=== PATIENT | male | born 1955 | race Caucasian/White ===

== ENCOUNTER 2019-10-24 14:10 | Observation (INO) | payer BC ==
[~2019-10-24] VITALS: Ht 172.7 cm; Wt 91.3 kg
[2019-10-24] MEDS ORDERED: IPRATRPIUM/ALBUTEROL 0.5/2.5MG 3 ML NEBU. ONE (14:17)
[2019-10-24] MEDS ORDERED: ALBUTEROL SULFATE 2.5 MG/3 ML NEBU. ONE (14:36)
[2019-10-24 14:43] LABS: BASO # 0.1 x10^3/uL (0.0-0.2); BASO % 1 % (0-3); EOS # 0.1 x10^3/uL (0.0-0.7); EOS % 1 % (0-3); HEMATOCRIT 55.5 % (39.0-53.0); HEMOGLOBIN 18.7 g/dL (13.0-17.5); LYMPH # 0.8 x10^3/uL (1.0-4.8); LYMPH % 8 % (24-48); MEAN CORPUSCULAR HEMOGLOBIN 32 pg (25-35); MEAN CORPUSCULAR HGB CONC 34 g/dL (31-37); MEAN CORPUSCULAR VOLUME 96 fL (79-100); MONO # 0.9 x10^3/uL (0.0-1.1); MONO % 9 % (0-9); NEUT # 8.3 x10^3uL (1.8-7.7); NEUT % 81 % (31-73); PLATELET COUNT 160 x10^3/uL (140-400); RED BLOOD COUNT 5.82 x10^6/uL (4.30-5.70); RED CELL DISTRIBUTION WIDTH 14.8 % (11.5-14.5); WHITE BLOOD COUNT 10.2 x10^3/uL (4.0-11.0)
[2019-10-24] MEDS ORDERED: ALBUTEROL SULFATE 2.5 MG/3 ML NEBU. CONT NEB ONE (14:45)
[2019-10-24] MEDS ORDERED: IPRATRPIUM/ALBUTEROL 0.5/2.5MG 3 ML NEBU. NEB ONE (14:45)
[2019-10-24] MEDS ORDERED: methylPREDNISolone SOD SUCC PF 125 MG/2 ML VIAL. IV ONE (14:45)
[2019-10-24 14:46] LABS: CALCIUM 8.9 mg/dL (8.5-10.1); CREATININE 1.2 mg/dL (0.7-1.3); GFR 61.1
--- NOTE | 2019-10-24 14:47 | RAD ---
CHEST PA LATERAL History: Dyspnea. Comparison: November 11, 2016 FINDINGS: Cardiomediastinal silhouette is stable. The aorta demonstrates a tortuous morphology similar to previous exam. No evidence of pneumothorax. No evidence of pleural effusion. No consolidating infiltrate. Bones appear intact. Degenerative changes at the spine. IMPRESSION: No evidence of consolidating infiltrate. Electronically signed by: Nikko Castaneda MD (10/24/2019 2:44 PM) [facility]
--- NOTE | 2019-10-24 14:55 | PHYS DOC ---
Past History Past Medical History: Anxiety, Arthritis, Hypertension Past Surgical History: No Surgical History Alcohol Use: Rarely Drug Use: None Adult General Chief Complaint Chief Complaint: FEVER HPI HPI Patient is a 64-year-old male who arrives by POV with report of shortness of breath and fever. [facility] and they had tested him for influenza. Influenza was negative but they and instructed patient to come to the emergency room for further evaluation and management because heart rate was rapid and O2 sat was low. Patient does indicat e that he has been short of breath for a few days and just hasn't been feeling well for the last day. Patient has been a smoker for 50 years. He denies any history of COPD however. Patient states that he has had no chest pain but he does indicate that he is been short of breath and it has been worsened with exertion.[] Review of Systems Review of Systems Constitutional: Denies fever or chills [] Respiratory: Complains of cough and shortness of breath [] Cardiovascular: No additional information not addressed in HPI [] GI: Denies abdominal pain, nausea, vomiting or diarrhea [] Integument: Denies rash or skin lesions [] Neurologic: Denies headache, focal weakness or sensory changes [] All other systems were reviewed and found to be within normal limits, except as documented in this note. Current Medications Current Medications Current Medications Medications (Trade) Dose Ordered Sig/Katherine Start Time Stop Time Status Last Admin Dose Admin Albuterol Sulfate (Ventolin) 2.5 mg STK-MED ONCE 10/24/19 14:36 10/24/19 14:36 DC Albuterol/ Ipratropium (Duoneb) 3 ml 1X ONCE 10/24/19 14:45 10/24/19 14:46 DC Methylprednisolone Sodium Succinate (SOLU-Medrol 125MG VIAL) 125 mg 1X ONCE 10/24/19 14:45 10/24/19 14:46 DC 10/24/19 14:45 125 MG Allergies Allergies Allergies Coded Allergies Type Severity Reaction Last Updated Verified No Known Drug Allergies 10/24/19 No Physical Exam Physical Exam Constitutional: Well developed, well nourished, in mild respiratory distress, non-toxic appearance. [] HENT: Normocephalic, atraumatic, bilateral external ears normal, oropharynx moist, no oral exudates, nose normal. [] Eyes: PERRLA, EOMI, conjunctiva normal, no discharge. [] Neck: Normal range of motion, no tenderness, supple. [] Cardiovascular: Mildly tachycardic rate with regular rhythm[] Lungs & Thorax: Diminished breath sounds are noted bilaterally with expiratory wheezes along with fine basilar rhonchi to auscultation [] Abdomen: Bowel sounds normal, soft, no tenderness. [] Skin: Warm, dry, no erythema, no rash. [] Extremities: No tenderness, no cyanosis, no clubbing, ROM intact. [] Neurologic: Alert and oriented X 3, no focal deficits noted. [] Current Patient Data Vital Signs Vital Signs Date Time Temp Pulse Resp B/P (MAP) Pulse Ox O2 Delivery O2 Flow Rate FiO2 10/24/19 14:48 97 heart neb 10.0 10/24/19 14:19 98.8 110 18 Lab Results Laboratory Tests Test 10/24/19 14:24 White Blood Count 10.2 x10^3/uL (4.0-11.0) Red Blood Count 5.82 x10^6/uL (4.30-5.70) H Hemoglobin 18.7 g/dL (13.0-17.5) H Hematocrit 55.5 % (39.0-53.0) H Mean Corpuscular Volume 96 fL (79-100) Mean Corpuscular Hemoglobin 32 pg (25-35) Mean Corpuscular Hemoglobin Concent 34 g/dL (31-37) Red Cell Distribution Width 14.8 % (11.5-14.5) H Platelet Count 160 x10^3/uL (140-400) Neutrophils (%) (Auto) 81 % (31-73) H Lymphocytes (%) (Auto) 8 % (24-48) L Monocytes (%) (Auto) 9 % (0-9) Eosinophils (%) (Auto) 1 % (0-3) Basophils (%) (Auto) 1 % (0-3) Neutrophils # (Auto) 8.3 x10^3uL (1.8-7.7) H Lymphocytes # (Auto) 0.8 x10^3/uL (1.0-4.8) L Monocytes # (Auto) 0.9 x10^3/uL (0.0-1.1) Eosinophils # (Auto) 0.1 x10^3/uL (0.0-0.7) Basophils # (Auto) 0.1 x10^3/uL (0.0-0.2) Sodium Level 138 mmol/L (136-145) Potassium Level 4.0 mmol/L (3.5-5.1) Chloride Level 99 mmol/L (98-107) Carbon Dioxide Level 28 mmol/L (21-32) Anion Gap 11 (6-14) Blood Urea Nitrogen 13 mg/dL (8-26) Creatinine 1.2 mg/dL (0.7-1.3) Estimated GFR (Cockcroft-Gault) 61.1 BUN/Creatinine Ratio 11 (6-20) Glucose Level 166 mg/dL (70-99) H Calcium Level 8.9 mg/dL (8.5-10.1) Total Bilirubin Pending Aspartate Amino Transferase (AST) Pending Alanine Aminotransferase (ALT) Pending Alkaline Phosphatase Pending BS-Evb-N-Type Natriuretic Peptide Pending Total Protein Pending Albumin Pending Albumin/Globulin Ratio Pending EKG EKG [] Radiology/Procedures Radiology/Procedures [] Impressions: PROCEDURE: CHEST PA & LATERAL CHEST PA LATERAL History: Dyspnea. Comparison: November 11, 2016 FINDINGS: Cardiomediastinal silhouette is stable. The aorta demonstrates a tortuous morphology similar to previous exam. No evidence of pneumothorax. No evidence of pleural effusion. No consolidating infiltrate. Bones appear intact. Degenerative changes at the spine. IMPRESSION: No evidence of consolidating infiltrate. Electronically signed by: Nikko Castaneda MD (10/24/2019 2:44 PM) [facility] Course & Med Decision Making Course & Med Decision Making Pertinent Labs and Imaging studies reviewed. (See chart for details) [] Dragon Disclaimer Dragon Disclaimer This electronic medical record was generated, in whole or in part, using a voice recognition dictation system. Departure Departure: Impression: Primary Impression: COPD exacerbation Additional Impressions: Acute bronchitis Fever Disposition: 09 ADMITTED INPATIENT Admitting Physician: Charla Bryant Condition: IMPROVED Referrals: SAMUEL BERG DO (PCP) Problem Qualifiers Additional Impressions: Acute bronchitis Bronchitis organism: unspecified organism Qualified Codes: J20.9 - Acute bronchitis, unspecified Fever Fever type: unspecified Qualified Codes: R50.9 - Fever, unspecified CURT ANGULO Jr. DO Oct 24, 2019 14:55
[2019-10-24 14:58] LABS: ALBUMIN 3.6 g/dL (3.4-5.0); ALBUMIN/GLOBULIN RATIO 1.1 (1.0-1.7); TOTAL BILIRUBIN 0.5 mg/dL (0.2-1.0); TOTAL PROTEIN 6.9 g/dL (6.4-8.2)
[2019-10-24] MEDS ORDERED: IOHEXOL 350 MG/ML 100 ML VIAL. IV ONE (16:30)
--- NOTE | 2019-10-24 17:21 | RAD ---
PQRS Compliance Statement: One or more of the following individualized dose reduction techniques were utilized for this examination: 1. Automated exposure control 2. Adjustment of the mA and/or kV according to patient size 3. Use of iterative reconstruction technique CT ANGIOGRAPHY CHEST 10/24/2019 4:18 PM INDICATION: Pulmonary embolism COMPARISON: Chest radiograph 10/24/2019 TECHNIQUE: Axial CT images of the chest were obtained after the intravenous administration of nonionic contrast. Coronal and sagittal reformats are provided. Maximum intensity projection images of the thoracic vasculature are provided. FINDINGS: The thyroid gland is normal in appearance. By paratracheal lymph node measures 7.5 mm. Subcarinal lymph node measures 13 mm by short axis. Precarinal lymph node measures 10 mm by short axis (series 5, image 48). Right hilar lymph node measures 12 mm (series 5, image 63). Infrahilar lymph node measures 9 mm (series 5, image 67) additional enlarged right hilar lymphadenopathy noted. The heart size is within normal limits. No significant pericardial effusion. Thoracic aorta is normal in course and caliber. There is adequate opacification of the pulmonary arterial system. There there are no filling defects within the pulmonary arterial system to suggest acute or chronic pulmonary embolus. Mild centrilobular pulmonary emphysema. Bronchial wall thickening is identified, involving the right lower lobe suggestive of bronchitis. There is right basilar subsegmental atelectasis. No pleural effusions, pulmonary vascular congestion or pneumothorax. Visualized portions of the upper abdomen are within normal limits. No suspicious osseous lesions are visualized. IMPRESSION: There is no evidence for acute or chronic pulmonary embolism. Right hilar lymphadenopathy may be reactive. 3 month follow-up chest CT may be of benefit to ensure resolution. Extensive bronchial wall thickening is noted in the right lower lobe with more diffuse mild bronchial wall thickening suggestive of bronchitis. Electronically signed by: Shannon Sancehz MD (10/24/2019 5:18 PM) [facility]
[2019-10-24] MEDS ORDERED: MORPHINE SULFATE 2 MG/ML DISP.SYRIN. IV PRN (18:15)
[2019-10-24] MEDS ORDERED: ONDANSETRON PF 4 MG/2 ML VIAL. IV PRN (18:15)
[2019-10-24 19:19] VITALS: BP 118/94
[2019-10-24] MEDS ORDERED: IPRATRPIUM/ALBUTEROL 0.5/2.5MG 3 ML NEBU. NEB SCH (20:00)
[2019-10-24] MEDS ORDERED: CYCL-331 PO (20:33)
[2019-10-24] MEDS ORDERED: LIDO700A21 TP (20:33)
[2019-10-24] MEDS ORDERED: CYCLOBENZAPRINE 10 MG TABLET. PO PRN (20:45)
[2019-10-24] MEDS: LIDOCAINE (700MG/PATCH) PATCH. TP SCH (21:15)
[2019-10-24] MEDS: IPRATRPIUM/ALBUTEROL 0.5/2.5MG 3 ML NEBU. NEB SCH ×2 (21:41→23:51)
[2019-10-24 22:42] VITALS: BP 119/75
--- NOTE | 2019-10-24 22:50 | EKG ---
[address] [address] Test Date: 2019-10-24 Test Time: 15:07:34 Pat Name: JUNE YORK Department: Room: Gender: M Appliquer: : [id number] Requested By: CURT ANGULO Order Number: [id number] Reading MD: Measurements Intervals [place] Rate: 99 P: 60 OK: 158 QRS: 39 QRSD: 78 T: -67 QT: 302 QTc: 392 Interpretive Statements SINUS RHYTHM T ABNORMALITY IN INFEROLATERAL LEADS ABNORMAL ECG RI6.01 No previous ECG available for comparison
[2019-10-25] MEDS ORDERED: NAPR500T8 PO (01:02)
[2019-10-25] MEDS ORDERED: TEST200V3 IM (01:02)
[2019-10-25] MEDS ORDERED: METO-247 PO (01:02)
[2019-10-25] MEDS ORDERED: DEXT30TA2 PO (01:02)
[2019-10-25] MEDS ORDERED: NIAC-9 PO (01:02)
[2019-10-25] MEDS ORDERED: CELE200C PO (01:02)
[2019-10-25] MEDS ORDERED: ESOM40CA PO (01:02)
[2019-10-25] MEDS ORDERED: DULO60CA6 PO (01:02)
[2019-10-25] MEDS: IPRATRPIUM/ALBUTEROL 0.5/2.5MG 3 ML NEBU. NEB SCH ×3 (05:06→10:15)
[2019-10-25 05:10] VITALS: BP 144/81
[2019-10-25 07:24] LABS: BASO # 0.1 x10^3/uL (0.0-0.2); BASO % 1 % (0-3); EOS % 0 % (0-3); HEMATOCRIT 53.3 % (39.0-53.0); HEMOGLOBIN 17.8 g/dL (13.0-17.5); LYMPH # 0.5 x10^3/uL (1.0-4.8); LYMPH % 4 % (24-48); MEAN CORPUSCULAR HEMOGLOBIN 32 pg (25-35); MEAN CORPUSCULAR HGB CONC 34 g/dL (31-37); MEAN CORPUSCULAR VOLUME 97 fL (79-100); MONO # 0.5 x10^3/uL (0.0-1.1); MONO % 4 % (0-9); NEUT # 12.6 x10^3uL (1.8-7.7); NEUT % 92 % (31-73); PLATELET COUNT 174 x10^3/uL (140-400); RED BLOOD COUNT 5.52 x10^6/uL (4.30-5.70); RED CELL DISTRIBUTION WIDTH 15.3 % (11.5-14.5); WHITE BLOOD COUNT 13.7 x10^3/uL (4.0-11.0)
[2019-10-25] MEDS ORDERED: PANTOPRAZOLE 40 MG TABLET. PO SCH (07:30)
[2019-10-25 07:40] LABS: ALBUMIN 3.4 g/dL (3.4-5.0); ALBUMIN/GLOBULIN RATIO 0.9 (1.0-1.7); CREATININE 1.4 mg/dL (0.7-1.3); GFR 51.2; POTASSIUM 3.8 mmol/L (3.5-5.1); TOTAL BILIRUBIN 0.4 mg/dL (0.2-1.0)
[2019-10-25] MEDS: methylPREDNISolone SOD SUCC PF 40 MG/ML VIAL. IV SCH ×2 (08:40→13:21)
[2019-10-25] MEDS: LIDOCAINE (700MG/PATCH) PATCH. TP SCH (08:47)
[2019-10-25] MEDS ORDERED: LIDOCAINE (700MG/PATCH) PATCH. TP SCH (09:00)
[2019-10-25] MEDS ORDERED: METOPROLOL SUCC 24HR ER 50 MG TAB.ER.24H. PO SCH (09:00)
[2019-10-25] MEDS ORDERED: CELECOXIB 200 MG CAPSULE PO SCH (09:00)
[2019-10-25] MEDS ORDERED: NIACIN ER 500 MG TABLET.ER PO SCH (09:00)
[2019-10-25] MEDS ORDERED: NICOTINE 14MG PATCH. TD SCH (09:00)
[2019-10-25] MEDS ORDERED: NICOTINE 21MG PATCH. TD SCH (09:00)
[2019-10-25] MEDS ORDERED: DULoxetine HCL 60 MG CAPSULE.DR PO SCH (09:00)
[2019-10-25] MEDS ORDERED: NAPROXEN 500 MG TABLET PO SCH (09:00)
[2019-10-25] MEDS ORDERED: CELECOXIB 100 MG CAPSULE PO SCH (09:00)
[2019-10-25 11:12] VITALS: BP 133/81
--- NOTE | 2019-10-25 15:14 | HP ---
ADMIT DATE: HISTORY OF PRESENT ILLNESS: This is a 64-year-old male patient who came to the Emergency Room complaining of shortness of breath, fever, cough. He was seen at [facility] and they have tested him for influenza and was negative, but they instructed the patient to come to the Emergency Room for further evaluation and management and because his oxygen was low, the patient does indicate that he has been short of breath for a few days and just has been feeling well. The patient has been a smoker for 50 years. He denies any history of COPD; however, the patient states he has had no chest pain, but does indicate that he is short of breath that has been worsening with exertion. He was extensively investigated in the Emergency Room. His white cell count was normal. His chemistry was unremarkable; however, D-dimer was high and therefore, he has had a CT angio of the chest, which showed that there is no evidence of acute or chronic pulmonary embolism. Right hilar lymphadenopathy may be reactive. Three months' followup chest may be benefit to ensure resolution. He has extensive bronchial wall thickening and it is noted in the right lower lobe with more diffuse mild bronchial wall thickening suggestive of bronchitis. He was admitted and started on IV Solu-Medrol and bronchodilator. PAST MEDICAL HISTORY: Significant for hypertension, hyperlipidemia, and osteoarthritis. PAST SURGICAL HISTORY: Significant for right shoulder arthroscopic surgery, tonsillectomy, hernia repair. ALLERGIES: He has no known drug allergies. MEDICATIONS: He is currently on following medications: He is on cyclobenzaprine 10 mg 3 times a day as needed, niacin 500 mg twice a day, metoprolol succinate 100 mg once a day, Celebrex 200 mg once a day, naproxen 500 mg daily, duloxetine 60 mg once a day, dextromethorphan amphetamine for Adderall 30 mg twice a day, Nexium 80 mg daily, testosterone cypionate 200 mg every 2 weeks and Lidoderm patch applied topically to the right shoulder. FAMILY HISTORY: He has one sister older and healthier. His mother is still alive at the age of 93 and has peripheral vascular disease and below-knee amputation. His father at the age of 75 because of colon cancer with metastasis to the lung. SOCIAL HISTORY: He is . He has son from a previous marriage. He smokes a pack a day for 50 years, quit alcohol about 1-1/2 years ago. Does not use drugs. 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 REVIEW OF SYSTEMS: As per history of present illness. PHYSICAL EXAMINATION: GENERAL: On arrival to the Emergency Room, he was somewhat flushed, but there was no jaundice, cyanosis or thyromegaly. No jugular venous distention. No limb edema. VITAL SIGNS: His heart rate was 110, blood pressure was 135/87, temperature 98.8, respiratory rate was 18 and oxygen saturation was 93% on room air. HEAD, EYES, EARS, NOSE AND THROAT: Showed normocephalic, atraumatic. NECK: Supple. HEART: Showed normal first and second heart sounds. No gallop or murmur. LUNGS: Showed diminished breath sounds bilaterally with bilateral expiratory wheezes, but no crepitation. ABDOMEN: Distended, soft, nontender. NEUROLOGIC: He was awake, alert, oriented x 3. No focal deficit. LABORATORY DATA: His lab work on admission showed that his white cell count was 10,200, hemoglobin 18.7, hematocrit 55, MCV 96, and platelet count of 160,000. His D-dimer was high at 0.86. Serum sodium 138, potassium 4, chloride 99, bicarbonate 28, anion gap of 11, BUN 13, creatinine 1.2, estimated GFR was 61 mL per minute, his glucose 166, calcium was 8.9. Total bilirubin, AST, ALT, alkaline phosphatase were normal. Total protein was 6.9, albumin was 3.6. ASSESSMENT AND PLAN: The patient was continued on his DuoNeb, Celebrex, nicotine, niacin, naproxen together with methylprednisolone. We will follow him closely and adjust medication as needed. MARÍA PHOENIX MD DR: COURTNEY/skye JOB#: [id number] / [id number]
--- NOTE | 2019-10-25 18:25 | DS ---
DATE OF DISCHARGE: 10/25/2019 HOSPITAL COURSE: The patient is a 64-year-old male patient who was admitted yesterday with acute bronchitis and probably COPD exacerbation. He was treated with IV steroids as well as bronchodilator. Continued all his medication. When I saw him today, he was sitting at the edge of the bed comfortably in no apparent respiratory distress. He was comfortable, has had no more cough or phlegm. His oxygen saturation was 92-93% on room air. He wanted to go home and from my point of view, he seemed to be more comfortable and I do not hear any wheezing or crackles. I have had a lengthy discussion with him about quitting smoking and a decision was made to discharge him home to continue with tapering course of steroids, bronchodilators and all other medication. PHYSICAL EXAMINATION: GENERAL: When I saw him today, he was sitting comfortably in the edge of the bed, in no apparent respiratory distress. No pallor, jaundice, cyanosis or thyromegaly. No jugular venous distention or limb edema. VITAL SIGNS: Her heart rate was 86, blood pressure was 130/81, temperature was 98.2, respiratory rate 20, and oxygen saturation was 93% on room air. HEAD, EYES, EARS, NOSE AND THROAT: Normocephalic, atraumatic. NECK: Supple. HEART: Showed normal first and second heart sounds. No gallop or murmur. CHEST: Shows central trachea, equally reduced expansion, reduced air entry, vesicular breath sounds. I really could not appreciate any crepitation or rhonchi. ABDOMEN: Distended, soft, nontender. NEUROLOGIC: He was awake, alert, very hard of hearing, has bilateral hearing aid, but otherwise he was grossly intact. He is up and about ambulating without assistance or assistive devices. DISCHARGE MEDICATIONS: The patient was discharged to continue on a tapering course of steroids. Continue with DuoNeb 0.5/2.5 mg in 3 mL by nebulizer every 4 hours as well as ProAir. No other medication. FINAL DISCHARGE DIAGNOSES: 1. Acute bronchitis. 2. Chronic obstructive pulmonary disease exacerbation. 3. Hypertension. 4. Hyperlipidemia. 5. Obstructive sleep apnea. 6. Bilateral sensorineural deafness. MARÍA PHOENIX MD DR: COURTNEY/skye JOB#: [id number] / [id number]
== END 2019-10-25 15:11 | disposition home or self-care (01) ==
LOC: ER 14:10 → INTOOBSV 18:54 → 1 SOUTH 18:54
PROVIDERS: ADMIT Internal Medicine; ATTEND Internal Medicine
DX: J44.1 Chronic obstructive pulmonary disease with (acute) exacerbation (principal); J20.9 Acute bronchitis, unspecified; R50.9 Fever, unspecified; F41.9 Anxiety disorder, unspecified; M19.90 Unspecified osteoarthritis, unspecified site; I10 Essential (primary) hypertension; G47.33 Obstructive sleep apnea (adult) (pediatric); E78.5 Hyperlipidemia, unspecified; F17.210 Nicotine dependence, cigarettes, uncomplicated; Z98.890 Other specified postprocedural states
CPT/HCPCS: 36415; 71046; 71275; 80053; 83880; 84484; 85025; 85379; 93005; 94640; 96374; 96376; 99284; G0378; J2920; J2930; J7613; J7620; Q9967; G0379

== ENCOUNTER → 2020-01-08 | Outpatient (CLI) | payer BC ==
[~2020-01-08] MED LIST: CELE200C PO; CYCL-331 PO; DEXT30TA2 PO; DULO60CA6 PO; ESOM40CA PO; LIDO700A21 TP; METO-247 PO; NAPR500T8 PO; NIAC-9 PO; TEST200V3 IM
[2020-01-08 17:04] LABS: BASO % 0 % (0-3); EOS # 0.1 x10^3/uL (0.0-0.7); EOS % 1 % (0-3); HEMATOCRIT 56.5 % (39.0-53.0); HEMOGLOBIN 19.2 g/dL (13.0-17.5); LYMPH # 2.7 x10^3/uL (1.0-4.8); LYMPH % 32 % (24-48); MEAN CORPUSCULAR HEMOGLOBIN 33 pg (25-35); MEAN CORPUSCULAR HGB CONC 34 g/dL (31-37); MEAN CORPUSCULAR VOLUME 97 fL (79-100); MONO # 0.8 x10^3/uL (0.0-1.1); MONO % 9 % (0-9); NEUT # 4.8 x10^3uL (1.8-7.7); NEUT % 57 % (31-73); PLATELET COUNT 205 x10^3/uL (140-400); RED BLOOD COUNT 5.86 x10^6/uL (4.30-5.70); RED CELL DISTRIBUTION WIDTH 13.6 % (11.5-14.5); WHITE BLOOD COUNT 8.4 x10^3/uL (4.0-11.0)
[2020-01-08 17:13] LABS: ALBUMIN 4.4 g/dL (3.4-5.0); ALBUMIN/GLOBULIN RATIO 1.4 (1.0-1.7); CALCIUM 10.2 mg/dL (8.5-10.1); CREATININE 1.5 mg/dL (0.7-1.3); GFR 47.3; TOTAL BILIRUBIN 0.7 mg/dL (0.2-1.0); TOTAL PROTEIN 7.6 g/dL (6.4-8.2)
[2020-01-09 07:08] LABS: HEMOGLOBIN A1C 13.1 % (4.8-5.6)
[2020-01-09 17:39] LABS: FREE T4 1.33 ng/dL (0.76-1.46); THYROID STIM HORMONE (TSH) 1.581 uIU/mL (0.358-3.740)
== END | disposition home or self-care (01) ==
LOC: LAB 16:16
PROVIDERS: ATTEND Physician Assistant Medical
DX: T14.8XXA Other injury of unspecified body region, initial encounter (principal); I10 Essential (primary) hypertension; E78.5 Hyperlipidemia, unspecified; X58.XXXA Exposure to other specified factors, initial encounter; Y93.89 Activity, other specified; Y92.89 Other specified places as the place of occurrence of the external cause; Y99.8 Other external cause status
CPT/HCPCS: 36415; 80053; 80061; 83036; 84439; 84443; 85025

== ENCOUNTER → 2020-03-24 | Outpatient (CLI) | payer BC ==
--- NOTE | 2020-03-24 15:05 | RAD ---
EXAM: CT Chest without IV contrast INDICATION: Reason: ABNORMAL CT 3 MONTH FU / Spl. Instructions: / History: Patient had a CT pulmonary angiogram study on October 24, 2019 but because of dyspnea and concern for pulmonary emboli. This revealed right hilar and mediastinal adenopathy recommended for 3 months follow-up imaging. TECHNIQUE: Multi-detector row CT images were acquired from the thoracic inlet through the upper abdomen without the use of IV contrast. Sagittal and coronal images were acquired from the transaxial data. All CT scans performed at this facility utilize dose optimization techniques as appropriate to the exam, including the following: Automated exposure control and adjustment of the mA and/or KV according to patient size (this includes techniques or standardized protocols for targeted exams where dose is indication/reason for exam). COMPARISON: CT pulmonary angiogram of 10/24/2019 FINDINGS: The absence of IV contrast limits evaluation of soft tissue pathology. CARDIOVASCULAR: Normal caliber thoracic aorta showing tortuosity and minimal calcifications of the arch and proximal descending aorta. Normal heart size without pericardial effusion. MEDIASTINUM & LESLEE: There has been an improvement in mediastinal and right hilar adenopathy. The remaining slightly prominent mediastinal lymph nodes. For reference, right lower paratracheal lymph node previously measuring 1.3 cm now measures 0.9 cm and subcarinal lymph node previously measuring 1.4 cm short axis now measures 0.7 cm. LUNGS: Interval improvement in peribronchial thickening previously reported, best appreciated in the right lower lobe on the prior study. There remains centrilobular pattern emphysema. With improved aeration and less motion artifact, a 2 mm right lower lobe nodule abutting the major fissure, best illustrated on axial image 173 of series 2 and sagittal image 288 of series 4 is seen. PLEURAL SPACE: No pleural effusions or pneumothorax. OSSEOUS & SOFT TISSUE: T11-T12 disc degenerative change. No acute or aggressive appearing osseous lesions. ABDOMEN: The visualized portions of the upper abdomen show slightly more conspicuous mesenteric vessels. This could reflect developing abdominal varices.. IMPRESSION: 1. Improving mediastinal and right hilar adenopathy, likely reflecting resolving inflammatory changes in the lungs. 2. A 2 mm right lower lobe pulmonary nodule abutting the major fissure is newly evident and is present in the setting of underlying emphysema. In a patient considered at low risk for lung cancer, no follow-up is required. In a patient considered at high risk for lung cancer, Fleischner Society guidelines would suggest an optional chest CT in 12 months. Electronically signed by: Pallavi Russell MD (03/24/2020 3:02 PM) [id number]
== END ==
LOC: CT 11:32
PROVIDERS: ATTEND Physician Assistant Medical
DX: R91.1 Solitary pulmonary nodule (principal); R59.0 Localized enlarged lymph nodes
CPT/HCPCS: 71250

== ENCOUNTER → 2020-08-01 | Outpatient (CLI) | payer BC ==
--- NOTE | 2020-08-01 16:38 | RAD ---
DUPLEX SONOGRAPHY OF THE PERIPHERAL ARTERIAL SYSTEM OF BOTH LOWER EXTREMITIES Clinical indications: Claudication. Hypertension. History smoking for 50 years. Findings: Duplex sonography of the peripheral arterial system of both lower extremities including carlin scale and color flow and spectral waveform analysis was performed.Triphasic waveforms are seen. No occlusive disease is seen. There is mild calcified plaque within the right common femoral artery which is less than 50 percent. No stenosis is identified. The measurements were performed using the NASCET criteria. Peak systolic flow velocities are as follows: Right leg: common femoral artery- 134 cm/sec, profunda femoral artery -45 cm/sec, proximal superficial femoral artery -126 cm/sec, mid superficial femoral artery -82 cm/sec, distal superficial femoral artery- 79 cm/sec, popliteal artery -59 cm/sec, proximal posterior tibial artery- 66 cm/sec, distal posterior tibial artery- 84 cm/sec, peroneal artery- 57 cm/sec, anterior tibial artery- 67 cm/sec, dorsalis pedis artery -72 cm/sec. Left leg: common femoral artery- 136 cm/sec, profunda femoral artery -45 cm/sec, proximal superficial femoral artery- 94cm/sec, mid superficial femoral artery- 94 cm/sec, distal superficial femoral artery- 84 cm/sec, popliteal artery -60 cm/sec, proximal posterior tibial artery -64 cm/sec, distal posterior tibial artery- 80 cm/sec, peroneal artery -66 cm/sec, anterior tibial artery -65 cm/sec, dorsalis pedis artery- 71 cm/sec. Impression: No significant peripheral arterial vascular disease is seen by duplex sonographic evaluation. Electronically signed by: Yoshi Juan MD (08/01/2020 4:35 PM) [id number]
== END ==
LOC: US 15:02
PROVIDERS: ATTEND Physician Assistant Medical
DX: I73.9 Peripheral vascular disease, unspecified (principal); I10 Essential (primary) hypertension; Z87.891 Personal history of nicotine dependence
CPT/HCPCS: 93925